=== PATIENT | male | born 1985 | race Two or more races ===

== ENCOUNTER 2022-02-25 08:35 | Inpatient (IN) | payer MEDICAID, OTHER ==
[~2022-02-25] VITALS: Ht 167.6 cm; Wt 113.0 kg
[2022-02-25 09:28] LABS: Urine Bacteria FEW /hpf (None Seen); Urine Blood TRACE /uL (Negative); Urine Mucus FEW (None Seen); Urine Specific Gravity 1.031 (1.001-1.035); Urine WBC 35 /hpf (0 - 3)
[2022-02-25 09:47] LABS: Calcium 8.1 mg/dL (8.5-10.1)
[2022-02-25 09:53] LABS: Albumin 3.4 g/dL (3.4-5.0); Bilirubin, Total 1.3 mg/dL (0.2-1.0)
[2022-02-25] MEDS ORDERED: SODIUM CHLORIDE 0.9% 1,000 ML IV ONE ×2 (10:15)
[2022-02-25] MEDS ORDERED: InsuLIN REG 1unit/0.01ml Soln (100units/ml) IV ONE (10:15)
[2022-02-25 11:41] LABS: Basophils # (auto) 0.1 10 ^3/uL (0-0.2); Basophils % (auto) 0.6 % (0.0-2.0); Eosinophils # (auto) 0.1 10 ^3/uL (0-0.8); Eosinophils % (auto) 0.5 % (0.0-7.0); Hematocrit 38.9 % (41.0-53.0); Lymphocytes # (auto) 2.1 10 ^3/uL (0.4-5.4); Lymphocytes % (auto) 14.2 % (10.0-50.0); Mean Corpuscular Hemoglobin 28.2 pg (28.0-32.0); Mean Corpuscular Hgb Conc. 33.4 g/dL (32.0-36.0); Mean Corpuscular Volume 84.4 fL (80.0-100.0); Monocytes # (auto) 0.7 10 ^3/uL (0-1.3); Neutrophils % (auto) 79.7 % (37.0-80.0); Nucleated Red Blood Cells % 0.7 %; Red Cell Distribution Width 15.3 % (11.8-14.3); White Blood Cell 15.1 10^3/uL (4.4-10.8)
[2022-02-25 11:43] LABS: Total Protein 8.3 g/dL (6.4-8.2)
[2022-02-25 11:48] LABS: BUN/Creatinine Ratio 8.9
[2022-02-25 11:53] LABS: Potassium 4.8 mmol/L (3.5-5.1)
[2022-02-25] MEDS ORDERED: metroNIDAZOLE 500MG/100ML 100 ML IV ONE (12:30)
[2022-02-25] MEDS ORDERED: cefTRIAXone 1GM/50ML D5W 50 ML IV ONE (12:30)
[2022-02-25] MEDS ORDERED: MORPHINE SULFATE INJECTION 2 MG/ML SYRG IV PRN (14:00)
[2022-02-25] MEDS ORDERED: NITROGLYCERIN 0.4 MG SL TAB SL PRN (14:00)
[2022-02-25] MEDS ORDERED: DOCUSATE SOD 100 MG CAP PO PRN (14:00)
[2022-02-25] MEDS ORDERED: ONDANSETRON HCL 4 MG/2 ML VIAL IV PRN (14:00)
[2022-02-25] MEDS ORDERED: MORPHINE SULFATE 4 MG/ML SYR/VIAL IV PRN (14:00)
[2022-02-25] MEDS: SODIUM CHLORIDE 0.9% 1,000 ML IV SCH ×2 (14:12→22:17)
[2022-02-25] MEDS ORDERED: ALUM & MAG HYDROX-SIMETH LIQ(MAALOX) 30 ML PO PRN (15:45)
[2022-02-25] MEDS: PANTOPRAZOLE 40 MG/10 ML VIAL INJ IV SCH (16:12)
[2022-02-25] MEDS ORDERED: DEXTROSE (50%) 50ML SYRG IV ONE (16:30)
[2022-02-25] MEDS ORDERED: InsuLIN REG 1unit/0.01ml Soln (100units/ml) SC ONE (17:00)
[2022-02-25] MEDS ORDERED: ACCU-CHEK COMFORT CURVE STRIP VI ONE (17:00)
[2022-02-25] MEDS: PIPERACILLIN-TAZOB 3.375GM 100 ML IV SCH (18:26)
[2022-02-25 20:00] VITALS: BP 136/90
[2022-02-25 22:00] VITALS: BP 134/88
[2022-02-26] MEDS: PIPERACILLIN-TAZOB 3.375GM 100 ML IV SCH ×3 (00:33→16:24)
[2022-02-26 04:55] VITALS: BP 129/88
[2022-02-26 04:57] LABS: Basophils # (auto) 0.1 10 ^3/uL (0-0.2); Basophils % (auto) 0.4 % (0.0-2.0); Eosinophils # (auto) 0 10 ^3/uL (0-0.8); Eosinophils % (auto) 0.2 % (0.0-7.0); Hematocrit 41.3 % (41.0-53.0); Hemoglobin 14.4 g/dL (13.5-17.5); Lymphocytes # (auto) 2.1 10 ^3/uL (0.4-5.4); Lymphocytes % (auto) 12.8 % (10.0-50.0); Mean Corpuscular Hgb Conc. 34.8 g/dL (32.0-36.0); Mean Corpuscular Volume 83.4 fL (80.0-100.0); Monocytes # (auto) 1.1 10 ^3/uL (0-1.3); Monocytes % (auto) 6.7 % (0.0-12.0); Neutrophils # (auto) 13.2 10 ^3/uL (1.6-8.6); Neutrophils % (auto) 79.9 % (37.0-80.0); Nucleated Red Blood Cells % 0.1 %; Red Blood Cells 4.95 10^6/uL (4.5-5.90); Red Cell Distribution Width 14.9 % (11.8-14.3); White Blood Cell 16.6 10^3/uL (4.4-10.8)
[2022-02-26 05:22] LABS: Albumin 3.4 g/dL (3.4-5.0); Anion Gap 9 (5-15); Blood Urea Nitrogen 7 mg/dL (7-18); Calcium 8.4 mg/dL (8.5-10.1); Carbon Dioxide 26 mmol/L (21-32); Chloride 102 mmol/L (98-107); Glucose 222 mg/dL (74-106); Magnesium 2.1 mg/dL (1.6-2.6); Potassium 3.9 mmol/L (3.5-5.1); Sodium 137 mmol/L (136-145)
[2022-02-26 05:24] LABS: Alanine Aminotransferase 73 U/L (16-61); Aspartate Aminotransferase 39 U/L (15-37); BUN/Creatinine Ratio 7.4; GFR African American 116 mL/min; GFR Non-African American 95 mL/min
[2022-02-26 05:27] LABS: Alkaline Phosphatase 112 U/L (45-117); Bilirubin, Total 1.3 mg/dL (0.2-1.0); Total Protein 7.6 g/dL (6.4-8.2)
[2022-02-26] MEDS: SODIUM CHLORIDE 0.9% 1,000 ML IV SCH ×2 (06:16→15:00)
[2022-02-26 07:56] LABS: Cholesterol 281 mg/dL (< 200); HDL Cholesterol 32 mg/dL (40-59); Triglycerides > 1000 mg/dL (< 150)
[2022-02-26 09:00] VITALS: BP 135/88
[2022-02-26] MEDS: PANTOPRAZOLE 40 MG/10 ML VIAL INJ IV SCH ×3 (09:50→21:33)
[2022-02-26 13:00] VITALS: BP 136/88
[2022-02-26] MEDS ORDERED: DEXTROSE (50%) 50ML SYRG IV PRN (16:15)
[2022-02-26] MEDS: ACCU-CHEK COMFORT CURVE STRIP VI SCH ×2 (16:51→21:33)
[2022-02-26] MEDS: InsuLIN REG 1unit/0.01ml Soln (100units/ml) SC SCH ×2 (17:28→21:34)
[2022-02-26 22:00] VITALS: BP 133/91
[2022-02-26] MEDS ORDERED: IBUPROFEN 600 MG TAB PO PRN (22:15)
[2022-02-27] MEDS: PIPERACILLIN-TAZOB 3.375GM 100 ML IV SCH ×3 (00:49→16:30)
[2022-02-27] MEDS: SODIUM CHLORIDE 0.9% 1,000 ML IV SCH ×3 (02:10→16:00)
[2022-02-27 05:00] VITALS: BP 113/75
[2022-02-27] MEDS: ACCU-CHEK COMFORT CURVE STRIP VI SCH ×3 (06:32→17:00)
[2022-02-27] MEDS: InsuLIN REG 1unit/0.01ml Soln (100units/ml) SC SCH ×3 (06:37→17:00)
[2022-02-27] MEDS: PANTOPRAZOLE 40 MG/10 ML VIAL INJ IV SCH (08:59)
[2022-02-27 09:00] VITALS: BP 135/87
[2022-02-27 13:00] VITALS: BP 137/88
[2022-02-27] MEDS ORDERED: FENO160T8 PO (16:29)
[2022-02-27] MEDS ORDERED: METF-370 PO (16:29)
[2022-02-27] MEDS ORDERED: CEPH500C PO (16:29)
[2022-02-27 17:00] VITALS: BP 135/99
== END 2022-02-27 19:09 | disposition home or self-care (01) | DRG 720 ==
LOC: ER 08:35 → TELE 13:48 → TELE-WESTW 17:22
PROVIDERS: ADMIT Nurse Practitioner; ATTEND Nurse Practitioner
DX: A41.9 Sepsis, unspecified organism (principal); K85.10 Biliary acute pancreatitis without necrosis or infection; E11.65 Type 2 diabetes mellitus with hyperglycemia; N39.0 Urinary tract infection, site not specified; K21.9 Gastro-esophageal reflux disease without esophagitis; E66.01 Morbid (severe) obesity due to excess calories; E78.1 Pure hyperglyceridemia; I10 Essential (primary) hypertension; Z20.822 Contact with and (suspected) exposure to COVID-19; Z88.8 Allergy status to other drugs, medicaments and biological substances; Z68.41 Body mass index [BMI] 40.0-44.9, adult
CPT/HCPCS: 36415; 74176; 74181; 76705; 80053; 80061; 81001; 82962; 83036; 83605; 83690; 83735; 85025; 87040; 96361; 96365; 96367; 96375; C9113; G0378; J0696; J1815; J2543; J3490

== ENCOUNTER 2022-08-27 19:56 | Inpatient (IN) | payer MEDICAID ==
[~2022-08-27] VITALS: Ht 167.6 cm; Wt 100.0 kg
[~2022-08-27 19:56] MED LIST: CEPH500C PO; FENO160T8 PO; METF-370 PO
[2022-08-27] MEDS ORDERED: IOHEXOL 350 MG/ML 100ML IJ ONE (20:28)
[2022-08-27] MEDS ORDERED: HYDROmorphone HCL 2 MG/ML VL/or syr IV ONE (22:00)
[2022-08-27] MEDS ORDERED: ONDANSETRON HCL 4 MG/2 ML VIAL IV ONE (22:00)
[2022-08-27] MEDS ORDERED: SODIUM CHLORIDE 0.9% 1,000 ML IV ONE (22:00)
[2022-08-27 22:59] LABS: Basophils # (auto) 0.1 10 ^3/uL (0-0.2); Basophils % (auto) 0.4 % (0.0-2.0); Eosinophils # (auto) 0 10 ^3/uL (0-0.8); Hematocrit 54.1 % (41.0-53.0); Hemoglobin 18.6 g/dL (13.5-17.5); Lymphocytes # (auto) 2.7 10 ^3/uL (0.4-5.4); Lymphocytes % (auto) 13.8 % (10.0-50.0); Mean Corpuscular Hemoglobin 29.6 pg (28.0-32.0); Mean Corpuscular Hgb Conc. 34.5 g/dL (32.0-36.0); Mean Corpuscular Volume 85.9 fL (80.0-100.0); Monocytes # (auto) 1.3 10 ^3/uL (0-1.3); Monocytes % (auto) 6.6 % (0.0-12.0); Neutrophils # (auto) 15.2 10 ^3/uL (1.6-8.6); Neutrophils % (auto) 79.2 % (37.0-80.0); Red Blood Cells 6.29 10^6/uL (4.5-5.90); Red Cell Distribution Width 15.7 % (11.8-14.3); White Blood Cell 19.3 10^3/uL (4.4-10.8)
[2022-08-27 23:39] LABS: Albumin 3.2 g/dL (3.4-5.0); Calcium 6.3 mg/dL (8.5-10.1); Magnesium 2.2 mg/dL (1.6-2.6); Potassium 5.4 mmol/L (3.5-5.1)
[2022-08-27 23:43] LABS: Bilirubin, Total 2.3 mg/dL (0.2-1.0)
[2022-08-27 23:46] LABS: BUN/Creatinine Ratio 7.8
[2022-08-28] MEDS ORDERED: InsuLIN REG 1unit/0.01ml Soln (100units/ml) IV ONE (00:45)
[2022-08-28] MEDS ORDERED: SODIUM CHLORIDE 0.9% 1,000 ML IV ONE (00:45)
[2022-08-28 01:30] LABS: INR 1.07 (0.9-1.15); Partial Thromboplastin Time 31.8 sec (24.6-33.4)
[2022-08-28 01:31] LABS: Lactic Acid w/Reflex 8.5 mmol/L (0.4-2.0)
[2022-08-28] MEDS ORDERED: SODIUM CHLORIDE 0.9% 1,000 ML IV SCH ×4 (03:15→09:15)
[2022-08-28] MEDS ORDERED: INSULIN LANTUS (GLARGINE) 1 /0.01ml (100units/ml) SC ONE (03:15)
[2022-08-28] MEDS ORDERED: DEXTROSE (50%) 50ML SYRG IV PRN (03:15)
[2022-08-28] MEDS ORDERED: InsuLIN R (HUMAN) 100 UNITS in SODIUM CHL 0.9% 99 ML IV SCH (03:15)
[2022-08-28] MEDS ORDERED: InsuLIN REG 1unit/0.01ml Soln (100units/ml) ONE (04:03)
[2022-08-28] MEDS ORDERED: ONDANSETRON HCL 4 MG/2 ML VIAL IV ONE (04:15)
[2022-08-28] MEDS ORDERED: HYDROmorphone HCL 2 MG/ML VL/or syr IV ONE (04:15)
[2022-08-28] MEDS ORDERED: ACCU-CHEK COMFORT CURVE STRIP VI SCH (04:30)
[2022-08-28 04:51] LABS: Basophils # (auto) 0 10 ^3/uL (0-0.2); Eosinophils # (auto) 0 10 ^3/uL (0-0.8); Lymphocytes # (auto) 2.8 10 ^3/uL (0.4-5.4); Monocytes # (auto) 1.3 10 ^3/uL (0-1.3); Monocytes % (auto) 8.9 % (0.0-12.0)
[2022-08-28 04:54] LABS: Basophils % (auto) 0.1 % (0.0-2.0); Eosinophils % (auto) 0.2 % (0.0-7.0); Hematocrit 51.4 % (41.0-53.0); Hemoglobin 16.7 g/dL (13.5-17.5); Lymphocytes % (auto) 19.4 % (10.0-50.0); Mean Corpuscular Hemoglobin 28.6 pg (28.0-32.0); Mean Corpuscular Hgb Conc. 32.5 g/dL (32.0-36.0); Mean Corpuscular Volume 88.1 fL (80.0-100.0); Neutrophils # (auto) 10.3 10 ^3/uL (1.6-8.6); Neutrophils % (auto) 71.4 % (37.0-80.0); Nucleated Red Blood Cells % 0.3 %; Red Blood Cells 5.84 10^6/uL (4.5-5.90); Red Cell Distribution Width 15.9 % (11.8-14.3); White Blood Cell 14.4 10^3/uL (4.4-10.8)
[2022-08-28] MEDS ORDERED: MORPHINE SULFATE INJ 2 MG/ml SYRG IV PRN (05:45)
[2022-08-28] MEDS ORDERED: ACETAMINOPHEN 325 MG TAB PO PRN (05:45)
[2022-08-28] MEDS ORDERED: HYDROcodone-ACET 5/325MG TAB PO PRN (05:45)
[2022-08-28] MEDS ORDERED: ONDANSETRON HCL 4 MG/2 ML VIAL IV PRN (05:45)
[2022-08-28] MEDS ORDERED: HYDROmorphone HCL 2 MG/ML VL/or syr IV PRN (05:45)
[2022-08-28] MEDS ORDERED: NITROGLYCERIN 0.4 MG SL TAB SL PRN (05:45)
[2022-08-28] MEDS ORDERED: ETOMIDATE (2MG/ML) 20ML VIAL IV ONE (06:10)
[2022-08-28] MEDS ORDERED: MIDAZOLAM DRIP 50 mg/50mL 0 ML IV ONE (06:11)
[2022-08-28] MEDS ORDERED: ROCURONIUM 10MG/ML 10ML VIAL IV ONE (06:11)
[2022-08-28] MEDS ORDERED: SODIUM BICARBONATE 8.4% INJ 50ML SYRINGE ONE ×3 (06:18→07:34)
[2022-08-28] MEDS ORDERED: CALCIUM CHLOR(10%) 100MG/ML 10ML SYRINGE IV ONE ×2 (06:21→12:21)
[2022-08-28] MEDS ORDERED: EPINEPHrine HCL 250 ML IV ONE (06:32)
[2022-08-28] MEDS ORDERED: NOREPINEPHRINE 8 MG/250ML KIT 250 ML IV ONE ×2 (06:40→06:43)
[2022-08-28] MEDS ORDERED: HYDROCORTISONE SOD SUCC 100 MG/2ML INJ VIAL ONE (06:42)
[2022-08-28] MEDS ORDERED: DOBUTamine 1000MCG/ML 250 ML IV ONE (07:05)
[2022-08-28] MEDS ORDERED: DOPamine 1600MCG/ML D5W 250 ML IV ONE (07:05)
[2022-08-28 07:22] VITALS: BP 101/81
[2022-08-28] MEDS ORDERED: EPINEPHrine HCL 1 MG/10 ML SYRG ONE (07:34)
[2022-08-28] MEDS ORDERED: VASOPRESSIN 20 UNIT/ML ONE (07:37)
[2022-08-28] MEDS ORDERED: EPINEPHrine HCL 1 MG/10 ML SYRG IV ONE ×2 (07:41→12:21)
[2022-08-28] MEDS ORDERED: SODIUM BICARBONATE 8.4% INJ 50ML SYRINGE IV ONE ×2 (07:41→12:21)
[2022-08-28 08:03] LABS: BUN/Creatinine Ratio 7.6; Magnesium 2.5 mg/dL (1.6-2.6); Phosphorus 2.6 mg/dL (2.5-4.90)
[2022-08-28 08:04] LABS: Calcium 5.5 mg/dL (8.5-10.1)
[2022-08-28] MEDS ORDERED: HYDROCORTISONE SOD SUCC 100 MG/2ML INJ VIAL IV ONE (08:45)
[2022-08-28] MEDS ORDERED: DOBUTamine 1000MCG/ML 250 ML IV SCH (08:45)
[2022-08-28] MEDS ORDERED: ATROPINE SULF 1 MG/10ml SYR IV ONE (12:21)
[2022-08-29] MEDS ORDERED: INSULIN LANTUS (GLARGINE) 1 /0.01ml (100units/ml) SC SCH (10:00)
== END 2022-08-28 07:42 | DRG 420 ==
LOC: ER 19:56 → EDBD 19:56 → TELE 08-28 06:02
PROVIDERS: ADMIT Internal Medicine; ATTEND Internal Medicine
PROC: 5A1935Z Respiratory Ventilation, Less than 24 Consecutive Hours (ICD-10-PCS; principal; 2022-08-28)
PROC: 5A12012 Performance of Cardiac Output, Single, Manual (ICD-10-PCS; 2022-08-28)
PROC: 0BH17EZ Insertion of Endotracheal Airway into Trachea, Via Natural or Artificial Opening (ICD-10-PCS; 2022-08-28)
DX: E11.10 Type 2 diabetes mellitus with ketoacidosis without coma (principal); I46.9 Cardiac arrest, cause unspecified; J96.00 Acute respiratory failure, unspecified whether with hypoxia or hypercapnia; K85.90 Acute pancreatitis without necrosis or infection, unspecified; N17.9 Acute kidney failure, unspecified; I42.9 Cardiomyopathy, unspecified; E87.1 Hypo-osmolality and hyponatremia; Z20.822 Contact with and (suspected) exposure to COVID-19; E78.5 Hyperlipidemia, unspecified; I10 Essential (primary) hypertension; R74.01 Elevation of levels of liver transaminase levels
CPT/HCPCS: 36415; 36600; 71045; 71260; 74177; 80048; 80053; 82010; 82805; 82962; 83605; 83690; 83735; 83930; 84100; 84484; 85025; 85610; 85730; 87040; 93005; 94002; 96361; 96374; 96375; G0378; J0171; J1815; J2250; J2405